=== PATIENT | male | born 1980 | race African-American/Black ===

== ENCOUNTER 2024-03-27 14:32 | Emergency (ER) | payer OTHER ==
[~2024-03-27] VITALS: Ht 170.2 cm; Wt 71.9 kg
[2024-03-27] MEDS: ACETAMINOPHEN 500 MG TAB PO ONE (15:18)
[2024-03-27 16:15] VITALS: TEMP 98.6
[2024-03-27 16:19] VITALS: BP 106/56; O2SAT 97
== END 2024-03-27 16:29 | disposition home or self-care (01) ==
LOC: M ED 14:32
DX: J09.X2 Influenza due to identified novel influenza A virus with other respiratory manifestations (principal)